=== PATIENT | female | born 1980 | race Caucasian/White ===

== ENCOUNTER 2016-09-12 09:27 | Outpatient (CLI) | payer MEDICAID | END 2016-09-12 09:28 | disposition home or self-care (01) | DX: Z00.00 Encounter for general adult medical examination without abnormal findings (principal); E16.2 Hypoglycemia, unspecified; R53.83 Other fatigue ==

== ENCOUNTER 2016-11-22 08:56 | Emergency (ER) | payer MEDICAID ==
--- NOTE | 2016-11-22 09:56 | ED Physician Documentation ---
History of Present Illness - Stated complaint Stated Complaint: CHEST PX - Chief complaint Chief Complaint: General - Additonal information Additional information: hx from pt 36 f quit smoking 2014 no HTN lipids or DM mom is a smoker and had prior CA unknown age pt had 2 min of chest pain Monday (4 days ago) while dusting mild pain for < 1 min today no fever no cough no dyspnea no NV no diaphoresis no leg pain swelling no OCP no travel no recent surgery Review of Systems Constitutional: denies: Fever, Chills Cardiac: reports: Chest pain / pressure Respiratory: denies: Dyspnea, Cough GI: denies: Abdominal Pain : denies: Now EGA (s/p tubal) Musculoskeletal: denies: Extremity pain, Extremity swelling Endocrine: denies: Easy bruising / bleeding Immunocompromised: denies: Immunocompromised PD PAST MEDICAL HISTORY - Past Medical History Past Medical History: No Cardiovascular: None Respiratory: None Neuro: None Endocrine/Autoimmune: None GI: None : None HEENT: None Psych: None Musculoskeletal: None Derm: None - Past Surgical History 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, 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 and 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, Tubal ligation - Present Medications Home Medications: Ambulatory Orders Medication Instructions Recorded Confirmed Naproxen [Naprosyn] 500 mg PO BID PRN #20 tablet 08/25/15 Albuterol Sulfate [Proventil Hfa 1 - 2 puffs IH Q4H PRN #1 03/07/16 Inhaler] hfa.aer.ad Guaifenesin/Pseudoephedrne HCl 1 each PO BID PRN #20 tab.er.12h 03/07/16 [Mucinex D ER 600-60 mg Tablet] Ibuprofen [Motrin] 800 mg PO Q8H PRN #30 tablet 03/07/16 guaiFENesin/CODEINE [Robitussin AC] 5 - 10 ml PO Q6H PRN #120 ml 03/07/16 - Allergies Allergies/Adverse Reactions: Allergies Allergy/AdvReac Type Severity Reaction Status Date / Time ethinyl estradiol Allergy Mild Rash Verified 08/25/15 09:33 [From [facility]] norelgestromin Allergy Mild Rash Verified 08/25/15 09:33 [From [facility]] - Social History Does the pt smoke?: No Smoking Status: Former smoker Does the pt drink ETOH?: No Does the pt have substance abuse?: No - Immunizations Immunizations are current?: No Immunizations: TDAP >10years/unknown - POLST Patient has POLST: No PD ED PE NORMAL - Vitals Vital signs reviewed: Yes - General General: Alert and oriented X 3 - HEENT HEENT: PERRL - Neck Neck: Supple, no meningeal sign - Cardiac Cardiac: RRR - Respiratory Respiratory: No respiratory distress, Clear bilaterally - Abdomen Abdomen: Soft, Non tender - Derm Derm: Normal color - Extremities Extremities: No deformity, Normal ROM s pain, No edema, No calf tenderness / cord - Neuro Neuro: Alert and oriented X 3 Results - Vitals Vitals: Vital Signs - 24 hr 11/22/16 11/22/16 09:00 10:11 Temperature 36.3 C L Heart Rate 76 60 Respiratory 16 16 Rate Blood Pressure 102/73 110/70 O2 Saturation 100 100 Oxygen O2 Source Room air - EKG (time done) 0916 Rate: Rate (enter#) Rhythm: NSR [place]: Normal Intervals: Normal HI Ischemia: Normal ST segments - Labs Labs: Laboratory Tests 11/22/16 11:20 Troponin I < 0.04 PD MEDICAL DECISION MAKING - ED course ED course: low risk for ACS - EKG neg, sx were 4 d ago so will check a trop but anticipate it will be neg, check CXR as well PERC neg do not feel PE work up needed Departure - Departure Disposition: 01 Home, Self Care Clinical Impression: Chest pain Qualifiers: Chest pain type: unspecified Qualified Code(s): R07.9 - Chest pain, unspecified Condition: Good Instructions: ED Chest Pain Atypical Unkn Cause Follow-Up: Jb Valenzuela MD [Primary Care Provider] - Comments: Your EKG and xray were fine It does not seem your pain was due to a heart attack, an aneurysm/tear of your aorta, no a blood clot in your lung. Because you have a family history of heart attacks, I recommend you discuss getting a stress test with your PMD
--- NOTE | 2016-11-22 10:28 | XRAY Preliminary Report ---
Exam: XR Chest 2 View PA/LAT IMPRESSION: Normal 2-view chest radiography. [facility] SITE ID: [id number]
--- NOTE | 2016-11-22 10:31 | XRAY Report ---
EXAM: CHEST RADIOGRAPHY EXAM DATE: 11/22/2016 10:09 AM. CLINICAL HISTORY: Cp. COMPARISON: 03/07/2016. TECHNIQUE: 2 views. FINDINGS: Lungs/Pleura: No focal opacities evident. No pleural effusion. No pneumothorax. Normal volumes. Mediastinum: Heart and mediastinal contours are unremarkable. Other: None. IMPRESSION: Normal 2-view chest radiography. [facility] Referring Provider Line: [phone] SITE ID: [id number]
[2016-11-22 11:56] VITALS: BP 112/68
== END 2016-11-22 11:55 | disposition home or self-care (01) ==
LOC: ED 08:56
DX: R07.9 Chest pain, unspecified (principal); Z87.891 Personal history of nicotine dependence; Z82.49 Family history of ischemic heart disease and other diseases of the circulatory system
CPT/HCPCS: 36415; 71020; 84484; 93005; 99283; 99284

== ENCOUNTER 2016-12-08 14:15 | Outpatient (CLI) | payer MEDICAID | END 2016-12-08 14:30 | disposition home or self-care (01) | LOC: RT.N 14:15 | PROVIDERS: ATTEND Family Medicine | DX: R07.89 Other chest pain (principal) | CPT/HCPCS: 93005 ==